=== PATIENT | female | born 1940 | race Caucasian/White ===

== ENCOUNTER 2021-06-15 12:06 | Emergency (ER) | payer OTHER ==
[~2021-06-15] VITALS: Ht 149.9 cm; Wt 81.6 kg
[2021-06-15] MEDS ORDERED: AVAPRO150 MG PO (12:36)
[2021-06-15] MEDS ORDERED: SYNTHROID137 MCG PO (12:36)
[2021-06-15] MEDS ORDERED: ARICEPT5 MG PO (12:37)
[2021-06-15] MEDS ORDERED: LIPITOR20 MG PO (12:37)
[2021-06-15] MEDS ORDERED: RISPERIDONE O0.25 MG PO (12:37)
[2021-06-15] MEDS ORDERED: IPRAT-ALBUT 0.5-3 ML IH (15:25)
== END 2021-06-15 15:38 | disposition home or self-care (01) ==
LOC: ER 12:06
DX: U07.1 COVID-19 (principal); B34.9 Viral infection, unspecified

== ENCOUNTER 2022-03-12 08:15 | Outpatient (CLI) | payer OTHER ==
[~2022-03-12 08:15] MED LIST: ARICEPT5 MG PO; AVAPRO150 MG PO; IPRAT-ALBUT 0.5-3 ML IH; LIPITOR20 MG PO; RISPERIDONE O0.25 MG PO; SYNTHROID137 MCG PO
== END 2022-03-12 08:26 | disposition home or self-care (01) ==
LOC: TOM 08:15
PROVIDERS: ATTEND Internal Medicine Gastroenterology
DX: K56.601 Complete intestinal obstruction, unspecified as to cause (principal)